=== PATIENT | male | born 1980 | race Caucasian/White ===

== ENCOUNTER 2017-11-25 20:20 | Inpatient (IN) | payer OTHER ==
[~2017-11-25] VITALS: Ht 182.9 cm; Wt 108.5 kg
[~2017-11-25 20:20] MED LIST: FLOMAX0.4 MG PO; PERCOCET 7.51 TABLET PO; PROTONIX PO; ZOFRAN ODT8 MG PO
[2017-11-25 21:15] LABS: BASOPHIL (%) 0.3 % (0-1); EOSINOPHIL (%) 0 % (0-5); HEMATOCRIT 44.9 % (38.0-50.0); HEMOGLOBIN 15.1 G/DL (12.5-16.6); IMMATURE GRANULOCYTE (%) 0.3 % (0.0-0.7); LYMPHOCYTE (%) 4.8 % (15-42); LYMPHOCYTE COUNT 0.4 K/uL (1.0-2.8); MCHC 33.6 G/DL (30.0-36.0); MCV 83.3 FL (86-99); MONOCYTE (%) 5.8 % (3-12); MONOCYTE COUNT 0.5 K/uL (0-0.8); NEUTROPHIL (%) 88.8 % (45-76); NEUTROPHIL COUNT 7.9 K/uL (1.8-6.4); PLATELET COUNT 233 K/uL (156-360); RBC DIS.WIDTH-CV 13.3 % (11.8-14.6); RBC DIS.WIDTH-SD 40.5 % (39-53); RED BLOOD COUNT 5.39 M/uL (4.00-5.50); WHITE BLOOD COUNT 8.9 K/uL (4.1-10.2)
[2017-11-25 21:23] LABS: ALBUMIN 4.1 g/dL (3.2-4.8); CHLORIDE 106 mEq/L (99-109); SODIUM 140 mEq/L (136-147)
[2017-11-25 21:26] LABS: GLUCOSE 103 mg/dL (70-99); TOTAL PROTEIN 6.9 g/dL (6.4-8.3)
[2017-11-25 21:28] LABS: TOTAL BILIRUBIN 0.7 mg/dL (0.0-1.0)
[2017-11-25 21:29] LABS: ALKALINE PHOSPHATASE 49 IU/L (3-129); CREATININE 1.2 mg/dL (0.6-1.3); GFR ESTIMATE (CALCULATED) > 59 mL/min/ (58.99-99999)
[2017-11-25 21:30] LABS: UREA NITROGEN (BUN) 18 mg/dL (9-23)
[2017-11-25 21:31] LABS: AST (GOT) 15 IU/L (2-34)
[2017-11-25 21:32] LABS: ALT (GPT) 26 IU/L (3-49)
[2017-11-25 21:33] LABS: LIPASE 20 U/L (1.0-51.0)
[2017-11-25 22:58] LABS: INTER. NORMALIZED RATIO 1.2
[2017-11-25 23:00] LABS: PTT 30.9 SEC (25-37)
[2017-11-25 23:14] LABS: TROP-I INTERPRETATION NEGATIVE; TROPONIN-I < 0.01 ng/mL (0.0-0.30)
[2017-11-25] MEDS ORDERED: ESOMEPRAZOLE MA40 MG PO (23:16)
[2017-11-25 23:50] LABS: BACTERIA RARE /HPF; EPITHELIAL CELLS NONE SEEN /HPF; MUCUS 1+ /LPF; RED BLOOD CELLS 0-5 /HPF (0-5); WHITE BLOOD CELLS 0-5 /HPF (0-5)
[2017-11-26] VITALS (8 sets, daily range): BP systolic 92–123; BP diastolic 50–77
[2017-11-26 00:48] LABS: C DIFF TOXIN NEGATIVE (NEGATIVE)
[2017-11-26 00:50] LABS: HEMOGLOBIN 14.8 G/DL (12.5-16.6)
[2017-11-26 05:34] LABS: HEMATOCRIT 39.4 % (38.0-50.0); HEMOGLOBIN 12.9 G/DL (12.5-16.6); MCV 84.7 FL (86-99)
[2017-11-26 06:01] LABS: ALBUMIN 3.5 G/DL (3.2-4.8); ALKALINE PHOSPHATASE 38 IU/L (3-129); ALT (GPT) 18 IU/L (3-49); AST (GOT) 13 IU/L (2-34); CHLORIDE 107 MEQ/L (99-109); GFR ESTIMATE (CALCULATED) > 59 mL/min/ (58.99-99999); GLUCOSE 104 mg/dL (70-99); POTASSIUM 3.8 MEQ/L (3.7-5.4); SODIUM 140 MEQ/L (136-147); TOTAL BILIRUBIN 0.7 MG/DL (0.0-1.0); TOTAL PROTEIN 5.5 G/DL (6.4-8.3); UREA NITROGEN (BUN) 15 mg/dL (9-23)
[2017-11-26 12:01] LABS: HEMATOCRIT 40.4 % (38.0-50.0); HEMOGLOBIN 13.2 G/DL (12.5-16.6); MCV 85.2 FL (86-99)
[2017-11-26 18:01] LABS: HEMATOCRIT 40.5 % (38.0-50.0); HEMOGLOBIN 13.1 G/DL (12.5-16.6); MCV 84.7 FL (86-99)
[2017-11-27 00:36] LABS: HEMOGLOBIN 12.7 G/DL (12.5-16.6); MCV 83.9 FL (86-99)
[2017-11-27 04:25] VITALS: BP 103/65
[2017-11-27 04:50] LABS: BASOPHIL (%) 0.6 % (0-1); EOSINOPHIL (%) 1.4 % (0-5); EOSINOPHIL COUNT 0.1 K/uL (0-0.3); HEMATOCRIT 40.3 % (38.0-50.0); HEMOGLOBIN 13.1 G/DL (12.5-16.6); IMMATURE GRANULOCYTE (%) 0.2 % (0.0-0.7); LYMPHOCYTE COUNT 1.3 K/uL (1.0-2.8); MCH 27.7 PG (29.0-34.0); MCHC 32.5 G/DL (30.0-36.0); MCV 85.2 FL (86-99); MONOCYTE (%) 14.7 % (3-12); MONOCYTE COUNT 0.7 K/uL (0-0.8); NEUTROPHIL (%) 57.1 % (45-76); NEUTROPHIL COUNT 2.8 K/uL (1.8-6.4); PLATELET COUNT 195 K/uL (156-360); RBC DIS.WIDTH-CV 13.2 % (11.8-14.6); RBC DIS.WIDTH-SD 41.3 % (39-53); RED BLOOD COUNT 4.73 M/uL (4.00-5.50); WHITE BLOOD COUNT 4.9 K/uL (4.1-10.2)
[2017-11-27 05:00] LABS: CHLORIDE 107 mEq/L (99-109); POTASSIUM 4.1 mEq/L (3.7-5.4); SODIUM 141 mEq/L (136-147)
[2017-11-27 05:01] LABS: GLUCOSE 88 mg/dL (70-99)
[2017-11-27 05:05] LABS: GFR ESTIMATE (CALCULATED) > 59 mL/min/ (58.99-99999)
[2017-11-27 05:06] LABS: UREA NITROGEN (BUN) 10 mg/dL (9-23)
[2017-11-27 07:13] VITALS: BP 123/78
[2017-11-27 11:19] VITALS: BP 119/79
[2017-11-27 12:31] LABS: HEMATOCRIT 41.8 % (38.0-50.0); HEMOGLOBIN 13.5 G/DL (12.5-16.6); MCV 84.8 FL (86-99)
[2017-11-27 15:10] VITALS: BP 132/88
[2017-11-27] MEDS ORDERED: ESOMEPRAZOLE MA40 MG PO (15:41)
== END 2017-11-27 18:05 | disposition home or self-care (01) | DRG 392 ==
LOC: EME → EDBD 20:20 → EME 20:20 → 4EAST 22:14 → EDOF 22:14 → ENRESERV 22:16 → EDOF 22:41 → ENRESERV 11-26 02:27 → 4EAST 11-26 03:28 → ENPENDDIS 11-27 → 4EAST 11-27 18:05
PROVIDERS: Emergency Medicine; Internal Medicine; Student in an Organized Health Care Education/Training Program
PROC: 0DB68ZX Excision of Stomach, Via Natural or Artificial Opening Endoscopic, Diagnostic (ICD-10-PCS; principal; 2017-11-25)
DX: A09 Infectious gastroenteritis and colitis, unspecified (principal); K92.0 Hematemesis; I95.9 Hypotension, unspecified; E86.0 Dehydration; K29.70 Gastritis, unspecified, without bleeding; K31.7 Polyp of stomach and duodenum; K44.9 Diaphragmatic hernia without obstruction or gangrene; K21.9 Gastro-esophageal reflux disease without esophagitis; J98.11 Atelectasis; M54.9 Dorsalgia, unspecified; M79.1 Myalgia; R00.0 Tachycardia, unspecified; R06.6 Hiccough; R30.0 Dysuria; R51 Headache; Z87.442 Personal history of urinary calculi
CPT/HCPCS: 71045; 74176; 80048; 80053; 81015; 83605; 83690; 84484; 85014; 85018; 85025; 85610; 85730; 86850; 86900; 86901; 87040; 87493; 87502; 87506; 88305; 88342 TC; 93005; 99281; 99285; C9113; J2270; J2405; J2765; J3230; J7030; J7050